=== PATIENT | female | born 2000 | race Caucasian/White ===

== ENCOUNTER 2024-11-24 15:32 | Emergency (ER) | payer OTHER, SELFPAY ==
[2024-11-24 15:53] VITALS: BP 124/74
--- NOTE | 2024-11-24 15:54 | ED.GENMED ---
ED Provider Triage
-
Patient seen by provider in Triage?: Seen in Triage
24-year-old female presents for evaluation for persistent abdominal pain nausea vomiting and now loose stool. She has been seen multiple times at [facility] for the same. She was just there this morning and had a CT scan and blood work.
She is vomiting in triage.
Vital signs are stable. Request was sent for records to be sent over from [place]. Will check labs through triage
Seen by provider in triage but warrants further assessment
History of Present Illness
General
Chief Complaint: Abdominal Symptoms
History of Present Illness
History of Present Illness:
.
Past History
Past History
ED Past Medical History: None
ED Past Surgical History: None
Social History
Tobacco: Non-smoker
Alcohol: Occasional
Family History
Family History: CAD
Phy Exam
Physical Exam
Physical Exam:
.
Course
Orders/Labs/Results
Orders:
Orders
11/24/24 15:53
Test Result ONCE
11/24/24 16:06
Complete Blood Count/With Diff Urgent
Comprehensive Metabolic Panel Urgent
HCG, Serum Qualitative Screen Urgent
Lipase Urgent
Abnormal Lab Results
11/24/24
16:06
Hct 36.7 L %
(37.0-47.0)
Absolute Neuts (auto) 6.7 H 10^3/uL
(1.4-6.5)
Carbon Dioxide 16 L mmol/L
(22-30)
BUN 6 L mg/dl
(7-17)
Glucose 123 H mg/dl
(70-99)
11/24/24 16:06
11/24/24 16:06
Vital Signs
Initial and Last Documented VS:
Initial Vital Signs
Temp Pulse Resp BP Pulse Ox
97.5 F 78 16 124/74 98
11/24/24 15:53 11/24/24 15:53 11/24/24 15:53 11/24/24 15:53 11/24/24 15:53
Last Documented Vital Signs
Temp Pulse Resp BP Pulse Ox
97.5 F 78 16 124/74 98
11/24/24 15:53 11/24/24 15:53 11/24/24 15:53 11/24/24 15:53 11/24/24 15:53
*Critical Care Note
Total Time (30-74mins, 75-104mins- exclusive of procedures): Not Applicable
ED Attending Note
-
Portions of this chart may have been created with voice recognition software.� Occasional wrong word or��sound alike� substitutions may have occurred due to the inherent limitations of voice recognition software.
Discharge Plan
Departure
Patient Disposition: Left Without Treatment
Prescriptions:
No Action
No Current Medications
0
Referrals:
NONE,* [Family Provider] -
Interventions
Interventions:
*Risk Screen - Suicide Last Done: 11/24/24 15:50
*Neglect/Abuse Screening Last Done: 11/24/24 15:50
*Nursing Disposition Last Done: 11/24/24 18:06
Discharge Date and Time
Discharge Date/Time: 11/24/24 18:06
Print Language: MOROCCAN
[2024-11-24 16:18] LABS: % Basophils 0.7 % (0-2); % Eosinophils 2.1 % (0-6); % Immature Granulocytes 0.4 % (0-0.5); % Monocytes 6.3 % (1.7-9.3); % Neutrophils 65.5 % (42.2-75.2); Absolute Basophils 0.1 10^3/uL (0-0.2); Absolute Eosinophils 0.2 10^3/uL (0-0.7); Absolute Lymphocytes 2.6 10^3/uL (1.2-3.4); Absolute Monocytes 0.6 10^3/uL (0.1-0.6); Absolute Neutrophils 6.7 10^3/uL (1.4-6.5); Hematocrit 36.7 % (37.0-47.0); Hemoglobin 13.1 g/dL (12.0-16.0); Mean Corp Hgb Conc. 35.7 g/dL (33.0-37.0); Mean Corpuscular Hgb 30.5 pg (27.0-31.0); Mean Corpuscular Volume 85.3 fL (81.0-99.0); Mean Platelet Volume 8.9 fL (7.4-10.4); Nucleated Red Blood Cells % 0 %; Platelet Count 346 10^3/uL (130-400); Red Cell Dist. Width 13.2 % (11.5-14.5); White Blood Cell Count 10.2 10^3/uL (4.8-10.8)
[2024-11-24 16:33] LABS: HCG, Serum Qualitative Screen Negative
[2024-11-24 16:36] LABS: ALT (SGPT) 25 U/L (0-35); AST (SGOT) 23 U/L (14-36); Albumin 4.3 g/dl (3.5-5.0); Alkaline Phosphatase 75 U/L (38-126); Blood Urea Nitrogen 6 mg/dl (7-17); Calcium 9.4 mg/dl (8.4-10.2); Carbon Dioxide 16 mmol/L (22-30); Chloride 106 mmol/L (98-107); Glucose 123 mg/dl (70-99); Potassium 4.5 mmol/L (3.5-5.1); Sodium 136 mmol/L (135-145); Total Bilirubin 1.1 mg/dl (0.2-1.3); Total Protein 7.5 g/dl (6.3-8.2); eGFR > 60.00
[2024-11-24 16:54] LABS: Lipase 30 U/L (23-300)
== END 2024-11-24 18:06 | disposition left against medical advice (07) ==
LOC: EMR 15:32
PROVIDERS: Physician Assistant
DX: R11.2 Nausea with vomiting, unspecified (principal)
CPT/HCPCS: 80053; 83690; 84703; 85025